=== PATIENT | male | born 2000 | race African-American/Black ===

== ENCOUNTER 2018-02-01 11:56 | Emergency (ER) | payer OTHER, SELFPAY ==
[2018-02-01 11:57] VITALS: BP 125/59; PULSE 79; RESP 18; TEMP 36.6; O2SAT 99; BMI 20.9
--- NOTE | 2018-02-01 12:25 | CT_ITS ---
STUDY: CT ABDOMEN AND PELVIS WITHOUT CONTRAST REASON FOR EXAM: Male, 17 years old. Left-sided abdominal pain. Difficulty with urination. RADIATION DOSAGE (If Supplied By Facility): CTDIvol = ( 8.77 ) mGy, DLP = ( 421.57 ) mGycm TECHNIQUE: Transaxial images were obtained from the dome of the diaphragm to the symphysis pubis without oral contrast, and without intravenous contrast. Sagittal and coronal images were reconstructed. Individualized dose optimization techniques were used for this CT. COMPARISON: None. FINDINGS: The visualized lung bases are unremarkable. The visualized portions of the heart are within normal limits. Normal liver. Normal gallbladder and extrahepatic biliary system. Normal spleen. Normal pancreas. Normal bilateral adrenal glands. Normal right kidney. Normal left kidney. There is a small hiatal hernia. Normal small intestine. Normal colon. The appendix is visualized and appears normal. Normal abdominal aorta. Normal inferior vena cava. Normal retroperitoneum. Normal urinary bladder. Normal abdominal wall. Normal osseous structures. CT/Abdomen/Pelvis without Cont IMPRESSION: Normal unenhanced CT of the abdomen and pelvis. Electronically Signed: Domingo Ames MD at 13:43 EDT Tel [phone], Service support ,
[2018-02-01 12:40] LABS: Bacteria 0 SEEN /hpf (None Seen); Mucous, Urine 0 SEEN /hpf (<or=2+); Squamous Epithelial Cells - UA 0 SEEN /hpf (0-5)
[2018-02-01] MEDS: Ondansetron 4 MG/2 ML Vial IV (12:41)
[2018-02-01] MEDS: Morphine 4 MG/ML Syringe IV (12:41)
[2018-02-01] MEDS: 0.9% Normal Saline 1,000 ML 250 ML IV (12:41)
[2018-02-01 12:43] LABS: Color, Urine Yellow (Yellow); Glucose, Dipstick Normal (Normal); Ketone-Dipstick Negative (Negative); Leukocyte Esterase-Dipstick 25 /ul (Negative); Nitrite-Dipstick Negative (Negative); Occult Blood-Urine 25 /ul (Negative); Protein-Dipstick 100 mg/dl (Negative); Specific Gravity, Urine 1.025 (1.002-1.030); Urine Bilirubin Dipstick Negative (Negative); Urine Clarity Clear (Clear); Urine Urobilinogen Normal (Normal)
[2018-02-01 12:50] LABS: Red Blood Cells-Urine 0-5 SEEN /hpf (0-5); White Blood Cells 0-5 SEEN /hpf (0-5)
[2018-02-01 12:59] LABS: Absolute Lymphocyte Count 1.79 X10^3/ul (0.83-4.51); Absolute Neutrophil Count 3.2 X10^3/uL (2.0-7.7); Basophil# 0.01 X10^3/uL; Basophil% 0.2 % (0-1); Eosinophil# 0.07 X10^3/uL; Eosinophils% 1.3 % (0-5); Hematocrit 42.3 % (40-54); Hemoglobin 14.3 g/dl (13.0-16.5); Lymphocyte # 1.79 X10^3/ul (4.0); Lymphocyte % 32.7 % (19-41); Mean Corp Hgb Conc 33.8 g/gl (32-36); Mean Corpuscular Volume 88.7 fL (80-94); Mean Platelet Vol. 9.7 fl (6.2-12.0); Monocyte# 0.42 X10^3/uL; Monocyte% 7.7 % (0-10); Neutrophil # 3.17 X10^3/uL (2.7-7.7); Neutrophil % 57.9 % (47-70); POSITIVE COUNT NO; POSITIVE DIFFERENTIAL NO; POSITIVE MORPHOLOGY NO; Platelet Count 188 K/mm3 (150-450); RBC Distribution Width CV 13.2 % (11.6-14.6); RBC Distribution Width SD 42.8 fl (35.1-43.9); Red Blood Count 4.77 M/mm3 (4.6-6.2); White Blood Count 5.5 K/mm3 (4.4-11.0)
--- NOTE | 2018-02-01 13:01 | ED.VISSUMM ---
- ER Visit Summary Date of Service: 02/01/18 Chief Complaint: Urinary frequency History of Present Illness: The patient is a 37 F who states that this morning around 083 0 hours he developed a pain in the left lower quadrant of his abdomen. He states he was very severe and is now let up. He states he has been urinating very frequently but only small amounts. No fevers. No prior history of this. No blood in the urine. He states he went to the [facility] and they did a test and said there was some small blood in the urine. He denies any penile discharge or lesions. Physical Examination: Afebrile vital signs stable Gen: Well-nourished well-developed patient appears quite uncomfortable pacing about the room Head: Normocephalic atraumatic Eyes: Perrl EOMI ENT: TMs clear no rhinorrhea moist mucous membranes Neck: Supple no lymphadenopathy no JVD nontender CVS: Regular rate rhythm no murmurs normal S1-S2 Respiratory: No distress clear to auscultation bilaterally chest nontender Abdomen: Soft nontender nondistended normal bowel sounds no masses Back: Nontender Extremity: Nontender no edema Skin: Normal color no rash Neuro: alert orientated ?3 CN II-XII intact normal strength sensation reflexes gait cerebellar Psych: Normal affect normal mood Test Results: Urinalysis was negative. CBC normal. Chemistry showed a glucose of 107. CT the abdomen pelvis did not demonstrate any obvious ureterolithiasis or hydronephroureter. Emergency Department Course and Treatment: Patient received Toradol, Zofran, morphine, and IV fluids. Repeat examination the patient appears well. He is not having any pain. He is able to urinate tolerated p.o. fluids. Based on his history of sudden onset of pain strong desire to only urinate without much actual urine production and then resolution of symptoms I would suspect that he had a kidney stone in the past though I cannot prove it at this time. Patient is otherwise feeling fine we will discharge him home with instructions to follow-up with his doctor but please return if his pain returns. Impression: 1. Acute abdominal pain This note was generated with [employer] dictation software. It may contain incorrect words, spelling, and punctuation that were not noted in review of the chart prior to signing ED Disposition - Plan for ED Patient: Disposition: Home or Assisted Living Chief Complaint: Flank Pain Instructions: ED Stone Renal Passed Referrals: [facility] [GROUP OF PHYSICIANS] - 1 Week Additional Instructions: Return if your pain returns or you have any concerns
[2018-02-01 13:11] LABS: Anion Gap 8 (5-15); BUN 15 mg/dL (7-18); BUN/Creat Ratio 15.4 RATIO (10-20); Calcium,Total 8.7 mg/dL (8.5-10.1); Chloride 107 mmol/L (98-107); Creatinine, Serum 0.97 mg/dL (0.70-1.30); EST Glomerular Filtration Rate 106 mL/min (>60); Est Glom Filt Rate - Afr Amer 128 mL/min (>60); Estimated Creatinine Clearance 124.74 ml/min; Glucose 107 mg/dL (74-106); Potassium 3.8 mmol/L (3.5-5.1); Sodium Level 140 mmol/L (136-145)
[2018-02-01] MEDS: Ketorolac 30 MG/ML Syringe IV (13:13)
[2018-02-01 15:14] VITALS: BP 138/64; PULSE 70; RESP 18; O2SAT 98
== END 2018-02-01 15:15 | disposition home or self-care (01) ==
PROVIDERS: Emergency Provider Emergency Medicine
DX: R10.32 Left lower quadrant pain (principal)
CPT/HCPCS: 74176; 80048; 81001; 85025; 96361; 96374; 96375; 99284; J7030; A4216; J2405

== ENCOUNTER 2021-05-06 16:31 | Outpatient (CLI) | payer OTHER, SELFPAY | END 2021-05-06 23:59 | disposition short-term general hospital (02) | LOC: IMMUN 05-13 16:32 | PROVIDERS: Visit Provider Family Medicine | DX: Z23 Encounter for immunization (principal) ==